=== PATIENT | male | born 1960 | race Caucasian/White ===

== ENCOUNTER 2017-03-25 11:51 | Day surgery (SDCO) | payer OTHER ==
[~2017-03-25] VITALS: Ht 180.3 cm; Wt 84.6 kg
[2017-03-25 12:13] LABS: BASOPHIL 0.2 % (0-2); EOSINOPHIL 0.9 % (0-5); HCT 42.9 % (42.0-52.0); HGB 15.2 g/dl (13.2-18.0); LYMPHOCYTE 35.4 % (15-48); MCH 34.7 pg (25.0-31.0); MCHC 35.4 g/dL (32.0-36.0); MCV 97.9 fL (78.0-100.0); MONOCYTE 8.8 % (0-12); MPV 10.4 fL (6.0-9.5); NEUTROPHIL 54.7 % (41-80); PLT 196 K/uL (150-400); RBC 4.38 M/uL (4.70-6.00); RDW 12.2 % (11.5-14.0); WBC 6.4 K/uL (4.0-10.5)
[2017-03-25 12:25] LABS: INR 0.86 (0.9-1.2); PROTHROMBIN TIME 11.4 SECONDS (11.7-14.0)
[2017-03-25 12:32] LABS: ALBUMIN 4.2 g/dL (3.5-5.0); BILIRUBIN - TOTAL 0.3 mg/dL (0.1-1.0); CREATININE 0.8 mg/dL (0.7-1.2); GLOBULIN (CALCULATION) 3.1 g/dL (2.2-4.2); MAGNESIUM 2.17 mg/dL (1.40-2.10); TOTAL PROTEIN 7.3 g/dL (6.4-8.3)
[2017-03-25 12:36] LABS: CKMB 3.34 ng/mL (0.97-4.94); TROPONIN T 0.026 ng/mL
[2017-03-26 07:44] LABS: CKMB 2.28 ng/mL (0.97-4.94); TROPONIN T 0.028 ng/mL
--- NOTE | 2017-03-28 07:30 | NUR ---
[facility] HERE TO TRANSPORT TO [facility];RPT GIVEN TO [facility] PER [employer] HAND NURSE;RPT GIVEN TO [facility];PT TRANSFERRED FROM CHAIR TO STRETCHER W/O DIFFICULT;AOOX3;VSS;TRANSFERRED TO [facility] AT THIS TIME.
== END 2017-03-28 07:38 | disposition other institution (70) ==
LOC: FER 11:51 → FTCU 14:48
PROVIDERS: Emergency Medicine; ADMIT Internal Medicine
DX: I25.110 Atherosclerotic heart disease of native coronary artery with unstable angina pectoris (principal); F17.210 Nicotine dependence, cigarettes, uncomplicated; R03.0 Elevated blood-pressure reading, without diagnosis of hypertension; E78.5 Hyperlipidemia, unspecified
CPT/HCPCS: 36415; 71010; 80053; 80061; 82550; 82553; 83735; 83874; 83880; 84484; 85025; 85610; 85730; 93005; 93880; G0378